=== PATIENT | female | born 1955 | race Caucasian/White ===

== ENCOUNTER 2017-06-12 09:30 | Emergency (ER) | payer OTHER ==
[~2017-06-12] VITALS: Ht 157.5 cm; Wt 52.2 kg
[2017-06-12] MEDS ORDERED: ZPAK PO (10:56)
[2017-06-12] MEDS ORDERED: PREDNISONE 20 M20 M1 PO (10:56)
[2017-06-12] MEDS ORDERED: VENTOLIN HFA 1818 GM INH (10:56)
[2017-06-12 11:23] VITALS: BP 113/55
== END 2017-06-12 11:26 | disposition home or self-care (01) ==
LOC: M.ERS 09:30
DX: J40 Bronchitis, not specified as acute or chronic (principal); F17.210 Nicotine dependence, cigarettes, uncomplicated; Z88.2 Allergy status to sulfonamides

== ENCOUNTER 2020-08-09 16:05 | Inpatient (IN) | payer OTHER ==
[~2020-08-09] VITALS: Ht 157.5 cm; Wt 55.8 kg
[~2020-08-09 16:05] MED LIST: PREDNISONE 20 M20 M1 PO; VENTOLIN HFA 1818 GM INH; ZPAK PO
[2020-08-09 16:07] VITALS: BP 121/87
[2020-08-09 16:50] LABS: ABSOLUTE BASOPHILS 0.1 thou/uL (0.0-0.2); ABSOLUTE EOSINOPHILS 0.1 thou/uL (0.0-0.7); ABSOLUTE MONOCYTES 1.7 thou/uL (0.0-1.2); ABSOLUTE NEUTROPHILS 12.2 thou/uL (1.6-8.1); BASOPHILS 0.5 %; EOSINOPHILS 0.5 %; HEMATOCRIT 37.7 % (37.0-47.0); HEMOGLOBIN 12.8 gm/dL (12.0-15.0); LYMPHOCYTES 12.7 %; MCH 30.9 pg (26.0-34.0); MCV 90.8 fL (80.0-100.0); MONOCYTES 10.3 %; MPV 8.4 fl. (7.2-11.1); NUCLEATED RBCS 0 /100WBC; PLATELET COUNT* 290 thou/uL (150-400); RBC 4.16 mil/uL (4.20-5.00); RDW-CV 12.8 % (10.5-14.5); WBC 16.1 thou/uL (4.0-11.0)
[2020-08-09 16:59] LABS: CALCIUM 9.6 mg/dL (8.5-10.1); CREATININE 0.6 mg/dL (0.6-1.3); POTASSIUM 3.2 mmol/L (3.5-5.1)
[2020-08-09 17:10] LABS: TOTAL PROTEIN 7.6 g/dL (6.4-8.2)
[2020-08-09 19:19] VITALS: BP 98/40
[2020-08-09 19:20] VITALS: BP 98/40
[2020-08-09 20:38] VITALS: BP 113/65
[2020-08-10] VITALS: BP 103/56
[2020-08-10 04:00] VITALS: BP 107/66
[2020-08-10 08:00] VITALS: BP 110/63
--- NOTE | 2020-08-10 08:39 | EKG ---
[place] [address] ELECTROCARDIOGRAM REPORT Name: EDISON ALDRIDGE Room: [address] [place] .R.#: [id number] Admission: 08/09/20 Attend Phys: Elliot Andre Discharge: Date of : 55 Date of Service: 08/09/20 1614 Report #: [id number] THIS REPORT FOR: //name// [facility] ED Test Date: 2020-08-09 Test Time: 16:14:25 Pat Name: EDISON ALDRIDGE Department: Room: [facility] Gender: F Custody Officer: JOHNSON : 1955 Requested By: Jackson Larry Order Number: [id number] MD: Ryan Mays Measurements Intervals Cameron Rate: 107 P: 43 [place]: 140 QRS: -4 QRSD: 112 T: 1 QT: 348 QTc: 465 Interpretive Statements Sinus tachycardia Nonspecific T wave flattening Compared to ECG 12/13/2008 17:31:10 Sinus rhythm no longer present Electronically Signed On 08-10-2020 8:39:16 CDT by Ryan Mays [email or web address] <ELECTRONICALLY SIGNED> By: Ryan Mays MD, FACC 08/10/20 0839 1614 1614 Ryan Mays MD, [facility] /EPI
[2020-08-10] MEDS ORDERED: PREDNISONE 20 M20 M1 PO (09:27)
[2020-08-10] MEDS ORDERED: LEVOFLOXACIN500 MG PO (09:28)
[2020-08-10 12:00] VITALS: BP 100/56
[2020-08-10 16:00] VITALS: BP 92/53
[2020-08-10 17:51] LABS: CREATININE 0.5 mg/dL (0.6-1.3); POTASSIUM 3.4 mmol/L (3.5-5.1)
[2020-08-10 17:54] LABS: MAGNESIUM 2.2 mg/dL (1.8-2.4); PHOSPHORUS* 1.7 mg/dL (2.5-4.9)
[2020-08-10 20:00] VITALS: BP 95/51
[2020-08-11] VITALS: BP 92/62
[2020-08-11 04:00] VITALS: BP 88/45
[2020-08-11 12:00] VITALS: BP 95/48
[2020-08-11 16:00] VITALS: BP 104/46
[2020-08-12 00:28] VITALS: BP 104/52
[2020-08-12 04:40] VITALS: BP 101/51
[2020-08-12 05:34] LABS: HEMATOCRIT 36.4 % (37.0-47.0); HEMOGLOBIN 12.2 gm/dL (12.0-15.0); MCH 30.8 pg (26.0-34.0); MCHC 33.6 g/dL (28.0-37.0); MCV 91.6 fL (80.0-100.0); MPV 8.9 fl. (7.2-11.1); RBC 3.97 mil/uL (4.20-5.00); RDW-CV 13.3 % (10.5-14.5); WBC 17.4 thou/uL (4.0-11.0)
[2020-08-12 05:53] LABS: CREATININE 0.6 mg/dL (0.6-1.3)
[2020-08-12 06:03] LABS: POTASSIUM 4.1 mmol/L (3.5-5.1)
[2020-08-12 08:00] VITALS: BP 100/46
[2020-08-12 12:00] VITALS: BP 98/70
[2020-08-12 16:00] VITALS: BP 97/39
[2020-08-12 19:45] VITALS: BP 101/53
[2020-08-13] VITALS: BP 99/45
[2020-08-13 04:00] VITALS: BP 111/60
[2020-08-13 04:48] LABS: HEMATOCRIT 37.1 % (37.0-47.0); HEMOGLOBIN 12.5 gm/dL (12.0-15.0); MCH 31.1 pg (26.0-34.0); MCHC 33.7 g/dL (28.0-37.0); MCV 92.5 fL (80.0-100.0); MPV 8.8 fl. (7.2-11.1); RBC 4.01 mil/uL (4.20-5.00); RDW-CV 13.2 % (10.5-14.5); WBC 14.9 thou/uL (4.0-11.0)
[2020-08-13 04:54] LABS: CREATININE 0.6 mg/dL (0.6-1.3); POTASSIUM 4.2 mmol/L (3.5-5.1)
[2020-08-13 09:00] VITALS: BP 115/58
[2020-08-13 10:33] VITALS: BP 115/58
== END 2020-08-13 11:10 | disposition home or self-care (01) | DRG 193 ==
LOC: M.ERS 16:05 → M.2W 17:28 → M.TBA-ER 17:28 → M.2W 17:28
PROVIDERS: Emergency Medicine Emergency Medical Services; Family Medicine; Internal Medicine; ADMIT Internal Medicine; ATTEND Internal Medicine
DX: J18.9 Pneumonia, unspecified organism (principal); J96.01 Acute respiratory failure with hypoxia; J44.1 Chronic obstructive pulmonary disease with (acute) exacerbation; J44.0 Chronic obstructive pulmonary disease with (acute) lower respiratory infection; J98.11 Atelectasis; F17.200 Nicotine dependence, unspecified, uncomplicated; E87.5 Hyperkalemia; Z20.822 Contact with and (suspected) exposure to COVID-19; Z79.899 Other long term (current) drug therapy; Z88.2 Allergy status to sulfonamides